=== PATIENT | female | born 1975 | race Caucasian/White ===

== ENCOUNTER 2023-10-08 15:33 | Emergency (ER) | payer MEDICARE, OTHER ==
[2023-10-08 15:52] VITALS: BP 105/70; PULSE 88; RESP 18; TEMP 98.8
--- NOTE | 2023-10-08 16:38 | ED ---
General Adult HPI - General Chief complaint: Recheck/Abnormal Lab/Rx Stated complaint: Ear complications Time Seen by Provider: 10/08/23 15:48 Source: patient, RN notes reviewed, old records reviewed Mode of arrival: ambulatory Limitations: no limitations - History of Present Illness Initial comments: Is a 48-year-old female who presents emergency department complaining of left ear pain and left facial swelling. Was placed on antibiotics, both drops as well as oral antibiotics for a left ear infection 3 days ago. States she is not having swelling of the left side of her face. She also has what appears to be an open pimple on the left face anterior to the ear as well. Denies any known sick contacts. Was placed on Augmentin as well as eardrops. Denies any fevers or chills. Presents for further evaluation at this time. Is concern for wors ening the infection due to the swelling. Denies any difficulty breathing or swallowing. Denies any tongue swelling. Denies any throat swelling. Does endorse the swelling around the left eye, left cheek, left jawline. - Related Data Previous Rx's Medication Instructions Recorded Sulfamethoxazole/Trimethoprim 1 each PO BID 7 Days #14 tablet 10/08/23 [Bactrim DS 800-160 mg] clindamycin HCL 300 mg PO TID 7 Days #21 capsule 10/08/23 dexAMETHasone [Decadron] 4 mg PO ONCE #1 tab 10/08/23 Allergies Allergy/AdvReac Type Severity Reaction Status Date / Time azithromycin [From Zithromax] Allergy Anaphylaxis Verified 10/08/23 15:40 doxycycline Allergy Anaphylaxis Verified 10/08/23 15:40 topiramate [From Topamax] AdvReac Confusion Verified 10/08/23 15:40 Review of Systems ROS Statement: Those systems with pertinent positive or pertinent negative responses have been documented in the HPI. Review of Systems: CONST: Denies fever EYES: Denies blurry vision ENT: Endorses ear pain/infection as well as edema over the left side of the face C/V: Denies Chest pain RESP: Denies shortness of breath GI: Denies abdominal pain : Denies dysuria SKIN: Denies rash. MSK: Denies joint pain. NEURO: Denies headache ROS Other: All systems not noted in ROS Statement are negative. Past Medical History Past Medical History: Hyperlipidemia Additional Past Medical History / Comment(s): ulceritive colitis History of Any Multi-Drug Resistant Organisms: None Reported Past Surgical History: Back Surgery, Bariatric Surgery Additional Past Surgical History / Comment(s): neck surgery, gastric bypass Past Psychological History: Anxiety Smoking Status: Vaper Past Alcohol Use History: None Reported Past Drug Use History: Marijuana General Exam - General Exam Comments Initial Comments: General: Appears in no acute distress. HEAD: Normal with no signs of head trauma. EYES: PERRLA, EOMI, conjunctiva normal, no discharge. Pupils are 3 mm and equal bilaterally. No pain with eye movement. ENT: Hearing grossly intact, normal oropharynx.. Mild sinus tenderness to palpation over the left maxillary sinus. Edema over the parotid gland, as well as along the lymph node chain along the jaw on the left. No floor the mouth swelling. No tongue edema. Uvula is midline. No posterior oropharyngeal edema. No stridor. Mild upper cheek swelling. Tympanic membrane on the left does have some fluid behind it. Bilateral ears have earwax present. Patient also has what appears to be a scab located over the skin around the site of the left parotid gland. She has no tenderness palpation of the tragus, or of the pinna on the left. No mastoid tenderness to palpation on the left.Tolerating oral secretions. No evidence of airway compromise. RESPIRATORY: Clear breath sounds bilaterally. No wheezes, rales, or rhonchi. C/V: Regular rate and rhythm. S1 and S2 auscultated, peripheral pulses 2+ and intact throughout ABD: Abd is soft, nontender, nondistended EXT: Normal range of motion, no obvious deformity SKIN: No rashes or lesions observed on exposed skin. NEURO: Alert and oriented x 4. Limitations: no limitations Course Vital Signs 10/08/23 15:35 Temperature 98.8 F Pulse Rate 88 Respiratory 18 Rate Blood Pressure 105/70 O2 Sat by Pulse 98 Oximetry Medical Decision Making - Medical Decision Making Was pt. sent in by a medical professional or institution ([facility], [facility], urgent care, hospital, or alf...) When possible be specific @ -No Did you speak to anyone other than the patient for history (EMS, parent, family, police, friend...)? What history was obtained from this source @ -No Did you review nursing and triage notes (agree or disagree)? Why? @ -I reviewed and agree with nursing and triage notes Were old charts reviewed (outside hosp., previous admission, EMS record, old EKG, old radiological studies, urgent care reports/EKG's, alf records)? Report findings @ -No old charts were reviewed Differential Diagnosis (chest pain, altered mental status, abdominal pain women, abdominal pain men, vaginal bleeding, weakness, fever, dyspnea, syncope, heada katelyn, dizziness, GI bleed, back pain, seizure, CVA, palpatations, mental health, musculoskeletal)? @ -Viral infection, otitis media, mastoiditis, preorbital cellulitis, parotiditis, this list is not all inclusive. EKG interpreted by me (3pts min.). @ -None done X-rays interpreted by me (1pt min.). @ -None done CT interpreted by me (1pt min.). @ -CT imaging returned remarkable for findings consistent with cellulitis versus parotiditis. No evidence of mastoiditis. They are still seeing earwax present in the left ear. U/S interpreted by me (1pt. min.). @ -None done What testing was considered but not performed or refused? (CT, X-rays, U/S, labs)? Why? @ -None What meds were considered but not given or refused? Why? @ -None Did you discuss the management of the patient with other professionals (professionals i.e. , PA, [facility], lab, RT, psych nurse, psychosocial rehabilitation counselor, scada technician, teacher, mounted police officer, trimming caser)? Give summary @ -No Was smoking cessation discussed for >3mins.? @ -No Was critical care preformed (if so, how long)? @ -No Were there social determinants of health that impacted care today? How? (Homelessness, low income, unemployed, alcoholism, drug addiction, transpo rtation, low edu. Level, literacy, decrease access to med. care, [facility], rehab)? @ -No Was there de-escalation of care discussed even if they declined (Discuss DNR or withdrawal of care, Hospice)? DNR status @ -No What co-morbidities impacted this encounter? (DM, HTN, Smoking, COPD, CAD, Cancer, CVA, ARF, Chemo, Hep., AIDS, mental health diagnosis, sleep apnea, morbid obesity)? @ -None Was patient admitted / discharged? Hospital course, mention meds given and route, prescriptions, significant lab abnormalities, going to OR and other pertinent info. @ -Patient presents on antibiotics for an ear infection is concern for worsening symptoms. We will obtain CT imaging of the facial bones as well as mastoid process. Basic labs will be obtained. She will be given a dose of IV Unasyn and fluids while here. She declines any analgesia medications. She will be given a dose of Decadron for the edema. Vital signs are within acceptable limits. No evidence of oropharyngeal involvement and no evidence of Janak's angina. Patient was in agreement this plan. CT imaging shows findings consistent with either cellulitis or parotiditis. Laboratory studies remarkable for slightly elevated glucose of 217. Remainder the labs within acceptable limits. I discussed results with the patient. It is possible she developed cellulitis from the pimple-like sore that developed over her left cheek however cannot rule out proctitis at this time. Patient will be treated and started on clindamycin as well as Bactrim. She will be also given an additional tablet of Decadron to take in 2 days. She was in agreement this plan. She will follow-up with her ENT. I instructed her to stop taking the prior prescription. She was in agreement this plan. I will provide the patient with a prescription for Bactrim, clindamycin. I instructed the patient to follow up with their PCP in the next 1-3 days.. I explained that the patient should return to the emergency department if they experience any worsening symptoms. Strict return precautions were discussed with the patient. The patient expressed understanding of these instructions. I answered all questions that the patient had. The patient was discharged home in good condition with their prescriptions and follow up information. Undiagnosed new problem with uncertain prognosis? @ -No Drug Therapy requiring intensive monitoring for toxicity (Heparin, Nitro, Insulin, Cardizem)? @ -No Were any procedures done? @ -No Diagnosis/symptom? @ -Left facial cellulitis, possible parotiditis Acute, or Chronic, or Acute on Chronic? @ -Acute Uncomplicated (without systemic symptoms) or Complicated (systemic symptoms)? @ -Complicated Side effects of treatment? @ -None Exacerbation, Progression, or Severe Exacerbation] @ -No Poses a threat to life or bodily function? @ -Unlikely - Lab Data Result diagrams: 10/08/23 16:31 10/08/23 16:31 Lab Results 10/08/23 10/08/23 Range/Units 16:31 16:31 WBC 8.5 (3.8-10.6) k/uL RBC 4.55 (3.80-5.40) m/uL Hgb 14.2 (11.4-16.0) gm/dL Hct 43.4 (34.0-46.0) % MCV 95.5 (80.0-100.0) fL MCH 31.2 (25.0-35.0) pg MCHC 32.7 (31.0-37.0) g/dL RDW 14.1 (11.5-15.5) % Plt Count 199 (150-450) k/uL MPV 8.8 Neutrophils % 63 % Lymphocytes % 29 % Monocytes % 4 % Eosinophils % 1 % Basophils % 1 % Neutrophils # 5.3 (1.3-7.7) k/uL Lymphocytes # 2.4 (1.0-4.8) k/uL Monocytes # 0.4 (0-1.0) k/uL Eosinophils # 0.1 (0-0.7) k/uL Basophils # 0.1 (0-0.2) k/uL Sodium 138 (137-145) mmol/L Potassium 3.9 (3.5-5.1) mmol/L Chloride 105 (98-107) mmol/L Carbon Dioxide 28 (22-30) mmol/L Anion Gap 5 mmol/L BUN 10 (7-17) mg/dL Creatinine 0.43 L (0.52-1.04) mg/dL Est GFR (CKD-EPI)AfAm >90 (>60 ml/min/1.73 sqM) Est GFR (CKD-EPI)NonAf >90 (>60 ml/min/1.73 sqM) Glucose 217 H (74-99) mg/dL Calcium 9.3 (8.4-10.2) mg/dL Total Bilirubin 0.5 (0.2-1.3) mg/dL AST 38 H (14-36) U/L ALT 40 H (4-34) U/L Alkaline Phosphatase 114 (38-126) U/L Total Protein 6.4 (6.3-8.2) g/dL Albumin 4.1 (3.5-5.0) g/dL Disposition Clinical Impression: Cellulitis, Parotiditis Disposition: HOME SELF-CARE Condition: Fair Instructions (If sedation given, give patient instructions): Cellulitis (ED) Additional Instructions: Parotidis. Follow up with your ENT Prescriptions: Sulfamethoxazole/Trimethoprim [Bactrim DS 800-160 mg] 1 each PO BID 7 Days #14 tablet clindamycin HCL 300 mg PO TID 7 Days #21 capsule dexAMETHasone [Decadron] 4 mg PO ONCE #1 tab Is patient prescribed a controlled substance at d/c from ED?: No Referrals: Janine Mon DO [Primary Care Provider] - 1-2 days Time of Disposition: 17:25
[2023-10-08 16:48] LABS: Basophils # (A) 0.1 k/uL (0-0.2); Basophils % (A) 1 %; Eosinophils # (A) 0.1 k/uL (0-0.7); Eosinophils % (A) 1 %; HCT 43.4 % (34.0-46.0); HGB 14.2 gm/dL (11.4-16.0); Lymphocytes # (A) 2.4 k/uL (1.0-4.8); Lymphocytes % (A) 29 %; MCH 31.2 pg (25.0-35.0); MCHC 32.7 g/dL (31.0-37.0); MCV 95.5 fL (80.0-100.0); Mean Platelet Volume 8.8; Monocytes # (A) 0.4 k/uL (0-1.0); Monocytes % (A) 4 %; Neutrophils # (A) 5.3 k/uL (1.3-7.7); Neutrophils % (A) 63 %; Platelet Count 199 k/uL (150-450); RBC 4.55 m/uL (3.80-5.40); RDW 14.1 % (11.5-15.5); WBC 8.5 k/uL (3.8-10.6)
[2023-10-08] MEDS: SODIUM CHLORIDE 0.9% 1,000 ML IV STA (16:54)
[2023-10-08] MEDS: DEXAMETHASONE SOD PHOSPHATE 10 MG/ML 1 ML VIAL IVP STA (16:54)
[2023-10-08] MEDS: AMPICILLIN-SULBACTAM 3 GM in SODIUM CHLORIDE 0.9% 100 ML IVPB STA (16:55)
[2023-10-08 17:00] LABS: Potassium 3.9 mmol/L (3.5-5.1)
[2023-10-08 17:01] LABS: ALT 40 U/L (4-34); AST 38 U/L (14-36); African American GFR (CKD) >90 (>60 ml/min/1.73 sqM); Albumin 4.1 g/dL (3.5-5.0); Alkaline Phosphatase 114 U/L (38-126); Anion Gap 5 mmol/L; Blood Urea Nitrogen 10 mg/dL (7-17); Calcium 9.3 mg/dL (8.4-10.2); Carbon Dioxide 28 mmol/L (22-30); Chloride 105 mmol/L (98-107); Glucose 217 mg/dL (74-99); Non-African American GFR(CKD) >90 (>60 ml/min/1.73 sqM); Sodium 138 mmol/L (137-145); Total Bilirubin 0.5 mg/dL (0.2-1.3); Total Protein 6.4 g/dL (6.3-8.2)
--- NOTE | 2023-10-08 17:02 | CT ---
EXAMINATION TYPE: CT mastoid wo con, CT facial bones w con CT DLP: 190.8 (accession [id number]), 308.2 (accession [id number]) mGycm, Automated exposure control for dose reduction was used. DATE OF EXAM: 10/08/2023 4:52 PM INDICATION: Patient age:Female; 48 years old; Reason for study: eval left mastoid; [facility]. COMPARISON: None. TECHNIQUE: Multiple thin axial images were obtained through the temporal bones and internal auditory canals. Additional coronal reformatted images were obtained. Axial imaging of the maxillofacial structures with sagittal coronal reformats. CT Contrast: Contrast used:100 mL of Isovue 300 with IV Contrast, none. FINDINGS: Right Temporal Bone: External Ear: The external auditory canal is unremarkable, The tympanic membrane is present and unrem arkable. Middle Ear: The ossicles demonstrate a normal appearance. Prussak's space is clear and the scutum i s intact. There is no evidence of osseous erosion and the tegmen tympani is intact. Inner Ear: Cochlea, vestibule and semi circular canals are unremarkable. No evidence of carotid french l dehiscence. Two and a half turns of the cochlea are identified. The vestibular aqueduct is not enl arged. Mastoid Air Cells: The mastoid air cells are clear. The tegmen mastoideum is intact. The aditus ad an trum is clear. Internal Auditory Canal: The internal auditory canal is unremarkable. Left Temporal Bone: External Ear: The external auditory canal mild amount of soft tissue at the tympanic membrane., The t ympanic membrane is present and otherwise unremarkable. Middle Ear: The ossicles demonstrate a normal appearance. Prussak's space is clear and the scutum i s intact. There is no evidence of osseous erosion and the tegmen tympani is intact. Inner Ear: Cochlea, vestibule and semi circular canals are unremarkable. No evidence of carotid french l dehiscence. Two and a half turns of the cochlea are identified. The vestibular aqueduct is not enl arged. Mastoid Air Cells: The mastoid air cells are clear. The tegmen mastoideum is intact. The aditus ad an trum is clear. Internal Auditory Canal: The internal auditory canal is unremarkable. Other: Mild soft tissue edema anterior left face and cheek. No organizing fluid collection. Visualize d maxilla facial structures demonstrate no evidence of fracture. The paranasal sinuses are relatively clear. The ostiomeatal units are clear. The globes and orbits are intact. Salivary glands are symmet jose. No evidence for lymphadenopathy. Visualized intracranial vascular structures and she no evidence for high-grade stenosis or aneurysmal dilation. IMPRESSION: 1. No evidence of left mastoid air cell effusion, the external auditory canal demonstrates mild amou nt of presumably cerumen at the tympanic membrane. 2. Mild to moderate edema in the left cheek around the parotid gland correlate for parotitis, correl ate for cellulitis.
== END 2023-10-08 18:16 | disposition home or self-care (01) ==
LOC: EC 15:33
DX: L03.211 Cellulitis of face (principal); K11.20 Sialoadenitis, unspecified; F17.290 Nicotine dependence, other tobacco product, uncomplicated; F12.90 Cannabis use, unspecified, uncomplicated; Z86.59 Personal history of other mental and behavioral disorders; Z88.8 Allergy status to other drugs, medicaments and biological substances; Z88.1 Allergy status to other antibiotic agents
CPT/HCPCS: 36415; 80053; 85025; 70486; 70487; 99283; 96365; 96375; 96361; J1100; J0295; Q9967